=== PATIENT | male | born 2000 | race Caucasian/White ===

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

== ENCOUNTER 2019-06-16 15:55 | Emergency (ER) | payer BC, OTHER, SELFPAY ==
[~2019-06-16] VITALS: Ht 188 cm; Wt 114.0 kg
[~2019-06-16 15:55] MED LIST: CLEO300C2 PO
[2019-06-16 16:24] LABS: BASO # 0.1 10^3/uL (0.0-0.2); BASO % 0.6 % (0.0-1.0); EOS # 0.7 10^3/uL (0.0-0.5); EOS % 8.5 % (0.0-3.0); HEMATOCRIT 43.8 % (42.0-52.0); HEMOGLOBIN 15.2 g/dl (13.5-17.5); LYMPH # 2.5 10^3/uL (1.5-5.0); LYMPH % 29.4 % (24.0-44.0); MEAN CORPUSCULAR HEMOGLOBIN 27.5 pg (27.0-33.0); MEAN CORPUSCULAR HGB CONC 34.7 g/dl (32.0-36.5); MEAN CORPUSCULAR VOLUME 79.3 fl (80.0-96.0); MONO # 0.6 10^3/uL (0.0-0.8); MONO % 6.6 % (0.0-5.0); NEUTROPHILS # 4.6 10^3/uL (1.5-8.5); NEUTROPHILS % 54.7 % (36.0-66.0); PLATELET COUNT, AUTOMATED 244 10^3/uL (150-450); RED BLOOD COUNT 5.52 10^6/uL (4.30-6.10); WHITE BLOOD COUNT 8.3 10^3/uL (4.0-10.0)
[2019-06-16 16:47] LABS: ALBUMIN 4.1 GM/DL (3.2-5.2); ALT/SGPT 31 U/L (12-78); BILIRUBIN,DIRECT 0.2 MG/DL (0.0-0.2); BILIRUBIN,TOTAL 0.8 MG/DL (0.2-1.0); BLOOD UREA NITROGEN 13 MG/DL (7-18); CALCIUM LEVEL 9.5 MG/DL (8.5-10.1); CARBON DIOXIDE LEVEL 31 MEQ/L (21-32); CHLORIDE LEVEL 108 MEQ/L (98-107); CREATININE FOR GFR 1.14 MG/DL (0.70-1.30); GLUCOSE, FASTING 86 MG/DL (70-100); LIPASE 82 U/L (73-393); POTASSIUM SERUM 4.3 MEQ/L (3.5-5.1); SODIUM LEVEL 143 MEQ/L (136-145); TOTAL PROTEIN 7.2 GM/DL (6.4-8.2)
[2019-06-16] MEDS ORDERED: NS 1,000 ML IV ONE (17:30)
[2019-06-16] MEDS ORDERED: ISOVUE-370 76% 100ML VIAL (Q9967) As Ordered ONE (17:35)
--- NOTE | 2019-06-16 19:05 | REPVR ---
EXAM: CT Abdomen and Pelvis With Contrast EXAM DATE/TIME: 06/16/2019 6:07 PM CLINICAL HISTORY: 18 years old, male; Abdominal pain; Generalized; Additional info: R/O appy TECHNIQUE: Imaging protocol: Computed tomography of the abdomen and pelvis with intravenous contrast. Radiation optimization: All CT scans at this facility use at least one of these dose optimization techniques: automated exposure control; mA and/or kV adjustment per patient size (includes targeted exams where dose is matched to clinical indication); or iterative reconstruction. Contrast material: ISOVUE 370; Contrast volume: 100 ml; Contrast route: IV; COMPARISON: No relevant prior studies available. FINDINGS: Lungs: No suspicious mass or airspace process in the visualized lung bases. Liver: Liver appears diffusely enlarged, without focal lesion. Gallbladder and bile ducts: Gallbladder is present and shows no evidence of gallstone. Pancreas: Pancreas appears normal. No focal mass or peripancreatic inflammation. Spleen: Spleen is enlarged measuring 15 cm. No focal lesion Adrenals: Adrenal glands are normal in appearance. Kidneys and ureters: Kidneys appear normal, with no stone, solid mass or hydronephrosis. Stomach and bowel: No evidence of small bowel obstruction. Sparse colonic diverticula are present without evidence of inflammation. Appendix: Normal caliber appendix is identified, with no adjacent inflammation. Intraperitoneal space: No pneumoperitoneum. Vasculature: Main portal and splenic veins enhance normally. No aortic aneurysm. Lymph nodes: No enlarged lymph nodes. Bladder: Bladder appears normal. Bones/joints: Bony structures show no acute fracture or destructive process. Soft tissues: No effacement of normal fat planes in the ischiorectal fossa. IMPRESSION: 1. No evidence of acute appendicitis. Normal caliber 4-5 mm appendix is present without adjacent inflammation and with no intraluminal fluid. 2. No explanation for acute right lower quadrant pain. 3. Hepatosplenomegaly Electronically signed by: Zeyad Goff On 06/16/2019 19:05:10 PM
[2019-06-16 19:33] VITALS: BP 123/75
== END 2019-06-16 20:26 | disposition home or self-care (01) ==
LOC: M ED 15:55
DX: R16.2 Hepatomegaly with splenomegaly, not elsewhere classified (principal); R10.84 Generalized abdominal pain; R19.7 Diarrhea, unspecified; R11.2 Nausea with vomiting, unspecified
CPT/HCPCS: 74177; 80048; 80076; 81001; 83690; 85025; 96360; 96361; 99284; Q9967